=== PATIENT | female | born 1970 ===

== ENCOUNTER 2019-05-13 04:56 | Emergency (ER) | payer MEDICAID ==
[2019-05-13 05:40] LABS: Basophils % (Auto) 0.7 % (0.0-1.8); Eosinophils # (Auto) 0.1 K/mm3 (0.0-0.4); Eosinophils % (Auto) 1.2 % (0.0-4.3); Hematocrit 42.9 % (30.3-42.9); Hemoglobin 13.8 gm/dl (10.1-14.3); Lymphocytes # (Auto) 1.8 K/mm3 (1.2-5.4); Lymphocytes % (Auto) 30.2 % (13.4-35.0); Mean Corpuscular HGB Conc 32 % (30-34); Mean Corpuscular Volume 79 fl (79-97); Monocytes # (Auto) 0.4 K/mm3 (0.0-0.8); Monocytes % (Auto) 6.9 % (0.0-7.3); Platelet Count 269 K/mm3 (140-440); Red Blood Count 5.46 M/mm3 (3.65-5.03); Red Cell Distribution Width 13.7 % (13.2-15.2)
--- NOTE | 2019-05-13 05:45 | XRay Report ---
CHEST 2 VIEWS INDICATION / CLINICAL INFORMATION: BRIANNA. Headache. Ear ache. COMPARISON: None available. FINDINGS: SUPPORT DEVICES: None. HEART / MEDIASTINUM: No significant abnormality. LUNGS / PLEURA: No significant pulmonary or pleural abnormality. No pneumothorax. ADDITIONAL FINDINGS: No significant additional findings. IMPRESSION: 1. No acute findings. Signer Name: Lavell Larkin MD Signed: 05/13/2019 5:40 AM Workstation Name: [id number]
[2019-05-13 05:58] LABS: Alanine Aminotransferase 28 units/L (7-56); Albumin 3.9 g/dL (3.9-5); BUN/Creatinine Ratio 20; Blood Urea Nitrogen 14 mg/dL (7-17); Calcium 9.4 mg/dL (8.4-10.2); Hemolysis Index 15
[2019-05-13 06:10] LABS: Bacteria,Urine 1+ /HPF (Negative); Bilirubin,Urine NEG (Negative); Blood,Urine NEG (Negative); Color,Urine Straw (Yellow); Protein,Urine <15 mg/dL mg/dL (Negative); Urobilinogen,Urine < 2.0 mg/dL (<2.0)
[2019-05-13] MEDS ORDERED: SODIUM CHLORIDE 0.9% 1000 ML 1,000 ML IV ONE (06:18)
[2019-05-13] MEDS ORDERED: INSULIN REGULAR, HUMAN 100 UNITS/1 ML IV ONE (06:18)
[2019-05-13] MEDS ORDERED: ONDANSETRON 4 MG/2 ML INJ IV ONE (06:18)
--- NOTE | 2019-05-13 06:40 | Emergency Department Report ---
- General Chief Complaint: Dyspnea/Respdistress Stated Complaint: EARACHE, HEADACHE Time Seen by Provider: 05/13/19 06:11 Source: patient Mode of arrival: Ambulatory Limitations: No Limitations - History of Present Illness Initial Comments: 49-year-old female with history of hypertension and diabetes presents to ED with complaint of URI symptoms. The patient reports cough, nasal congestion, bilateral earaches, and headache 3 days. Patient also reports associated nausea and vomiting. Denies any sick contacts. Denies fever. MD Complaint: cough, nasal congestion -: days(s) (3) Severity: moderate Consistency: constant Improves With: nothing Worsens With: nothing Associated Symptoms: headache, nasal congestion, cough, shortness of breath, nausea, vomiting. denies: fever, chills, chest pain - Related Data Previous Rx's Medication Instructions Recorded Last Taken Type Benzonatate [Tessalon Perles] 100 mg PO Q8HR PRN #20 capsule 05/13/19 Unknown Rx Fluticasone [Flonase] 1 spray NS QDAY #1 bottle 05/13/19 Unknown Rx Loratadine [Claritin] 10 mg PO DAILY #20 tablet 05/13/19 Unknown Rx Naproxen [Naprosyn] 500 mg PO BID #20 tablet 05/13/19 Unknown Rx Ondansetron [Zofran Odt] 4 mg PO Q8HR PRN #20 tab.rapdis 05/13/19 Unknown Rx Allergies Allergy/AdvReac Type Severity Reaction Status Date / Time Penicillins Allergy Swelling Verified 05/13/19 05:03 ED Review of Systems ROS: Stated complaint: EARACHE, HEADACHE Other details as noted in HPI Comment: All other systems reviewed and negative Constitutional: denies: chills, fever Respiratory: cough, shortness of breath Cardiovascular: denies: chest pain Gastrointestinal: abdominal pain, nausea, vomiting ED Past Medical Hx - Past Medical History Previous Medical History?: Yes Hx Hypertension: Yes Hx Diabetes: Yes - Surgical History Past Surgical History?: No - Social History Smoking Status: Former Smoker Substance Use Type: None - Medications Home Medications: Home Medications Medication Instructions Recorded Confirmed Last Taken Type Benzonatate [Tessalon Perles] 100 mg PO Q8HR PRN #20 capsule 05/13/19 Unknown Rx Fluticasone [Flonase] 1 spray NS QDAY #1 bottle 05/13/19 Unknown Rx Loratadine [Claritin] 10 mg PO DAILY #20 tablet 05/13/19 Unknown Rx Naproxen [Naprosyn] 500 mg PO BID #20 tablet 05/13/19 Unknown Rx Ondansetron [Zofran Odt] 4 mg PO Q8HR PRN #20 tab.rapdis 05/13/19 Unknown Rx ED Physical Exam - General Limitations: No Limitations General appearance: alert, in no apparent distress - Head Head exam: Present: atraumatic, normocephalic - Eye Eye exam: Present: normal appearance, PERRL, EOMI - ENT ENT exam: Present: mucous membranes moist - Neck Neck exam: Present: normal inspection - Respiratory Respiratory exam: Present: normal lung sounds bilaterally. Absent: respiratory distress, wheezes, rales, rhonchi - Cardiovascular Cardiovascular Exam: Present: regular rate, normal rhythm - GI/Abdominal GI/Abdominal exam: Present: soft. Absent: distended, tenderness - Extremities Exam Extremities exam: Present: normal inspection - Neurological Exam Neurological exam: Present: alert, oriented X3 - Psychiatric Psychiatric exam: Present: normal affect, normal mood - Skin Skin exam: Present: warm, dry, intact, normal color ED Course Vital Signs 05/13/19 05/13/19 05/13/19 05:08 06:16 06:30 Temperature 98.4 F Pulse Rate 83 76 72 Respiratory 18 11 L 10 L Rate Blood Pressure 154/86 153/77 O2 Sat by Pulse 95 96 96 Oximetry 05/13/19 05/13/19 05/13/19 06:48 07:01 07:30 Temperature Pulse Rate 72 Respiratory 18 19 7 L Rate Blood Pressure 158/68 167/84 O2 Sat by Pulse 98 98 Oximetry ED Medical Decision Making - Lab Data Result diagrams: 05/13/19 05:25 05/13/19 05:25 - Radiology Data Radiology results: report reviewed, image reviewed - Medical Decision Making 49-year-old female with URI symptoms 3 days. Patient is afebrile, WBCs normal. Chest x-ray normal, no evidence of pneumonia or any other abnormalities. Likely viral illness. Blood glucose elevated to 600, however no evidence of DKA. Patient given IV fluid bolus and 10 units of insulin, glucose improved to the 300s. Patient feeling much better, prescriptions given. Outpatient follow- up advised. Return precautions given. - Differential Diagnosis URI, pneumonia, flu, DKA Critical care attestation.: If time is entered above; I have spent that time in minutes in the direct care of this critically ill patient, excluding procedure time. ED Disposition Clinical Impression: Hyperglycemia, Viral illness, Upper respiratory infection Disposition: TO HOME OR SELFCARE Is pt being admited?: No Condition: Stable Instructions: Upper Respiratory Infection (ED), Viral Syndrome (ED), Diabetic Hyperglycemia (ED) Prescriptions: Loratadine [Claritin] 10 mg PO DAILY #20 tablet Fluticasone [Flonase] 1 spray NS QDAY #1 bottle Naproxen [Naprosyn] 500 mg PO BID #20 tablet Benzonatate [Tessalon Perles] 100 mg PO Q8HR PRN #20 capsule PRN Reason: Cough Ondansetron [Zofran Odt] 4 mg PO Q8HR PRN #20 tab.rapdis PRN Reason: Vomiting Referrals: PRIMARY CARE, [Referring] - 3-5 Days [facility] [Provider Group] - 3-5 Days Time of Disposition: 08:06
[2019-05-13 08:26] VITALS: BP 159/81
== END 2019-05-13 08:15 | disposition home or self-care (01) ==
LOC: ED 04:56
DX: B34.9 Viral infection, unspecified (principal); J06.9 Acute upper respiratory infection, unspecified; I10 Essential (primary) hypertension; E11.9 Type 2 diabetes mellitus without complications; Z87.891 Personal history of nicotine dependence; Z88.0 Allergy status to penicillin
CPT/HCPCS: 36415; 71046; 80053; 81001; 82962; 83690; 84703; 85025; 87086; 96361; 96374; 96375; 99284; J2405; J7030; J1815

== ENCOUNTER 2019-09-01 21:07 | Emergency (ER) | payer MEDICAID ==
[2019-09-01 21:24] VITALS: BP 164/80
--- NOTE | 2019-09-01 21:26 | Emergency Department Report ---
Stated Complaint: BUMP ON SIDE/PAIN Time Seen by Provider: 09/01/19 21:20 - HPI History of Present Illness: This is a 49 y.o. F. that presents to the ER with painful rash to right hip. Patient states she was diagnosed with shingles at [facility] 08/30/18. She was prescribed antivirals and narcotics and states pain continues. She denies redness, swelling, numbness or tingling, or recent injury. - ROS Review of Systems: Skin: painful rash to right hip - Exam Physical Exam: Skin: erythematous vesicular rash to right hip, from, ttp, no swelling MSE screening note: Focused history and physical exam performed. Due to findings the following was ordered: ED Medical Decision Making - Medical Decision Making This is a 49 y.o. F. that presents to the ER with painful rash to right hip. VSS. Patient in no acute distress. Patient recently diagnosed with shingles. Taking antivirals and tylenol #3. There is a erythematous vesicular rash to right hip that appear to be herpes zoster. Patient instructed to continue current treatment. Instructed to wash hands frequently, avoid old and young people because she is contagious. Follow up with PCP. Return to work in 3 days. ED Disposition for MSE Disposition: [id number]/[id number] HOME UNDER HOME HLTH Is pt being admited?: No Condition: Stable Instructions: Herpes Zoster (ED) Additional Instructions: Continue current medication prescribed by [facility]. Follow up with primary care doctor in 2-3 days. Referrals: MANJULA MONAHAN MD [Staff Physician] - 3-5 Days MIMI KAUFMAN MD [Staff Physician] - 3-5 Days [facility] [Outside] - 3-5 Days Forms: Work/School Release Form(ED) Time of Disposition: 21:28
== END 2019-09-01 21:41 | disposition home health service (06) ==
LOC: ED 21:07
DX: R21 Rash and other nonspecific skin eruption (principal)
CPT/HCPCS: 99282

== ENCOUNTER 2019-09-15 18:42 | Emergency (ER) | payer MEDICAID ==
--- NOTE | 2019-09-15 19:42 | Event Note ---
ED Screening Note Date of service: 09/15/19 Time: 19:42 ED Screening Note: 49 yo F w/ hx diabetes, HTN presents to ED s/p drainage of abscess on right flank 3 days ago on 09/12/19. Patient states area started out as shingles, but then became infected. Reports worsening pain to the area, vomiting, chills, foul smell and bloody drainage. States she is currently on antibiotics, but cannot remeber the name. Pt reports procedure was performed by Dr Anthony Mcnair. Contacted PCP today and was told to come to ED to be evaluated. This initial assessment/diagnostic orders/clinical plan/treatment(s) is/are subject to change based on patients health status, clinical progression and re-assessment by fellow clinical providers in the ED. Further treatment and workup at subsequent clinical providers discretion. Patient/guardian urged not to elope from the ED as their condition may be serious if not clinically assessed and managed. Initial orders include: CBC, BMP
[2019-09-15 19:59] LABS: Basophils % (Auto) 0.4 % (0.0-1.8); Eosinophils # (Auto) 0.1 K/mm3 (0.0-0.4); Eosinophils % (Auto) 1.1 % (0.0-4.3); Hematocrit 41.4 % (30.3-42.9); Lymphocytes # (Auto) 1.9 K/mm3 (1.2-5.4); Lymphocytes % (Auto) 30.1 % (13.4-35.0); Mean Corpuscular HGB Conc 34 % (30-34); Mean Corpuscular Volume 77 fl (79-97); Monocytes # (Auto) 0.4 K/mm3 (0.0-0.8); Monocytes % (Auto) 5.7 % (0.0-7.3); Platelet Count 385 K/mm3 (140-440); Red Blood Count 5.36 M/mm3 (3.65-5.03); Red Cell Distribution Width 13.6 % (13.2-15.2)
[2019-09-15 20:17] LABS: BUN/Creatinine Ratio 14; Blood Urea Nitrogen 11 mg/dL (7-17); Calcium 10.5 mg/dL (8.4-10.2); Hemolysis Index 2
[2019-09-15] MEDS ORDERED: SODIUM CHLORIDE 0.9% 1000 ML 1,000 ML IV ONE ×2 (21:16→21:22)
--- NOTE | 2019-09-15 21:17 | Emergency Department Report ---
ED General Adult HPI - General Chief complaint: Wound/Laceration Stated complaint: POST OP WOUND Time Seen by Provider: 09/15/19 21:15 Source: patient Mode of arrival: Ambulatory Limitations: Language Barrier - History of Present Illness Initial comments: 49 yo F w/ hx diabetes, HTN presents to ED s/p drainage of abscess on right flank 3 days ago on 09/12/19. Patient states area started out as shingles, but then became infected. Reports worsening pain to the area, vomiting, chills, foul smell and bloody drainage. States she is currently on antibiotics that was prescribed to her after the incision and drainage. Patient states she is taking Bactrim twice a day. Patient states she was also prescribed valcyclovir for the shingles rash. Patient states that she has changed the dressing as instructed. - Related Data Previous Rx's Medication Instructions Recorded Last Taken Type Benzonatate [Tessalon Perles] 100 mg PO Q8HR PRN #20 capsule 05/13/19 Unknown Rx Fluticasone [Flonase] 1 spray NS QDAY #1 bottle 05/13/19 Unknown Rx Loratadine (Nf) [Claritin] 10 mg PO DAILY #20 tablet 05/13/19 Unknown Rx Naproxen [Naprosyn] 500 mg PO BID #20 tablet 05/13/19 Unknown Rx Ondansetron [Zofran Odt] 4 mg PO Q8HR PRN #20 tab.rapdis 05/13/19 Unknown Rx Allergies Allergy/AdvReac Type Severity Reaction Status Date / Time Penicillins Allergy Swelling Verified 05/13/19 05:03 ED Review of Systems ROS: Stated complaint: POST OP WOUND Other details as noted in HPI Comment: All other systems reviewed and negative ED Past Medical Hx - Past Medical History Hx Hypertension: Yes Hx Diabetes: Yes - Social History Smoking Status: Never Smoker - Medications Home Medications: Home Medications Medication Instructions Recorded Confirmed Last Taken Type Benzonatate [Tessalon Perles] 100 mg PO Q8HR PRN #20 capsule 05/13/19 Unknown Rx Fluticasone [Flonase] 1 spray NS QDAY #1 bottle 05/13/19 Unknown Rx Loratadine (Nf) [Claritin] 10 mg PO DAILY #20 tablet 05/13/19 Unknown Rx Naproxen [Naprosyn] 500 mg PO BID #20 tablet 05/13/19 Unknown Rx Ondansetron [Zofran Odt] 4 mg PO Q8HR PRN #20 tab.rapdis 05/13/19 Unknown Rx ED Physical Exam - General Limitations: Language Barrier General appearance: alert, in no apparent distress - Head Head exam: Present: atraumatic, normocephalic - Eye Eye exam: Present: normal appearance - ENT ENT exam: Present: mucous membranes moist - Neck Neck exam: Present: normal inspection - Respiratory Respiratory exam: Present: normal lung sounds bilaterally. Absent: respiratory distress - Cardiovascular Cardiovascular Exam: Present: regular rate, normal rhythm. Absent: systolic murmur, diastolic murmur, rubs, gallop - GI/Abdominal GI/Abdominal exam: Present: soft, normal bowel sounds - Extremities Exam Extremities exam: Present: normal inspection - Back Exam Back exam: Present: normal inspection, full ROM, tenderness (and erythema to the right lower back. Wound was visualized, mild cellulitis around it. Wound is healing appropriately. No pus) - Neurological Exam Neurological exam: Present: alert, oriented X3 - Psychiatric Psychiatric exam: Present: normal affect, normal mood - Skin Skin exam: Present: warm, dry, intact, normal color. Absent: rash ED Course Vital Signs 09/15/19 09/15/19 19:21 23:35 Temperature 98.2 F Pulse Rate 85 71 Respiratory 16 16 Rate Blood Pressure 148/83 Blood Pressure 113/61 [Left] O2 Sat by Pulse 99 97 Oximetry ED Medical Decision Making - Lab Data Result diagrams: 09/15/19 19:46 09/15/19 19:46 Laboratory Last Values WBC 6.4 K/mm3 (4.5-11.0) 09/15/19 19:46 RBC 5.36 M/mm3 (3.65-5.03) H 09/15/19 19:46 Hgb 14.0 gm/dl (10.1-14.3) 09/15/19 19:46 Hct 41.4 % (30.3-42.9) 09/15/19 19:46 MCV 77 fl (79-97) L 09/15/19 19:46 MCH 26 pg (28-32) L 09/15/19 19:46 MCHC 34 % (30-34) 09/15/19 19:46 RDW 13.6 % (13.2-15.2) 09/15/19 19:46 Plt Count 385 K/mm3 (140-440) 09/15/19 19:46 Lymph % (Auto) 30.1 % (13.4-35.0) 09/15/19 19:46 [place] % (Auto) 5.7 % (0.0-7.3) 09/15/19 19:46 Eos % (Auto) 1.1 % (0.0-4.3) 09/15/19 19:46 Baso % (Auto) 0.4 % (0.0-1.8) 09/15/19 19:46 Lymph # 1.9 K/mm3 (1.2-5.4) 09/15/19 19:46 [place] # 0.4 K/mm3 (0.0-0.8) 09/15/19 19:46 Eos # 0.1 K/mm3 (0.0-0.4) 09/15/19 19:46 Baso # 0.0 K/mm3 (0.0-0.1) 09/15/19 19:46 Seg Neutrophils % 62.7 % (40.0-70.0) 09/15/19 19:46 Seg Neutrophils # 4.0 K/mm3 (1.8-7.7) 09/15/19 19:46 Sodium 139 mmol/L (137-145) 09/15/19 19:46 Potassium 4.0 mmol/L (3.6-5.0) 09/15/19 19:46 Chloride 94.6 mmol/L (98-107) L 09/15/19 19:46 Carbon Dioxide 26 mmol/L (22-30) 09/15/19 19:46 Anion Gap 22 mmol/L 09/15/19 19:46 BUN 11 mg/dL (7-17) 09/15/19 19:46 Creatinine 0.8 mg/dL (0.7-1.2) 09/15/19 19:46 Estimated GFR > 60 ml/min 09/15/19 19:46 BUN/Creatinine Ratio 14 % 09/15/19 19:46 Glucose 551 mg/dL (65-100) H* 09/15/19 19:46 POC Glucose 244 (70-105) H 09/15/19 23:17 Calcium 10.5 mg/dL (8.4-10.2) H 09/15/19 19:46 - Medical Decision Making This 49-year-old diabetic female who presented for postop wound check status post incision and drainage 4 days ago presents with hyperglycemia. Patient states that she takes NovoLog for diabetes. Wound was evaluated, does not look infected. Mild cellulitis around the wound. No swelling, wound looks well-healing Packing was removed and wound was repacked with iodoform gauze. Patient received 2 L of fluid, 10 units of insulin, pain medication in the ED. blood sugar reduced at 244 prior to discharge. Patient reports to feeling much better prior to discharge. Discussed the patient to continue taking her medication as prescribed by her doctors. Discussed the patient to follow-up with her primary care physician for wound check in 2-3 days Critical Care Time: Yes Critical care time in (mins) excluding proc time.: 33 Critical care attestation.: If time is entered above; I have spent that time in minutes in the direct care of this critically ill patient, excluding procedure time. Critical Care Time: 33 minutes ED Disposition Clinical Impression: Postoperative wound cellulitis, Hyperglycemia due to type 2 diabetes mellitus, Acute hyperglycemia Disposition: - TO HOME OR SELFCARE Is pt being admited?: No Does the pt Need Aspirin: No Condition: Stable Instructions: Diabetes Mellitus Type 2 in Adults (ED), Acute Wound Care (ED) Additional Instructions: Make sure to follow up with the primary care physician as discussed. Continue to Take all your medications as you've been prescribed by your primary care physician Follow-up for wound check a 2-3 days If you have any worsening symptoms or develop new symptoms please return to ED immediately. Referrals: ELTON ELLIOTT MD [Staff Physician] - 3-5 Days [facility] [Provider Group] - 3-5 Days [facility] [Outside] - 3-5 Days [facility] [Outside] - 3-5 Days Forms: Accompanied Note, Work/School Release Form(ED) Time of Disposition: 23:21
[2019-09-15] MEDS ORDERED: MORPHINE 2 MG/1 ML INJ IV ONE (21:22)
[2019-09-15] MEDS ORDERED: INSULIN REGULAR, HUMAN 100 UNITS/1 ML IV ONE (21:22)
[2019-09-15] MEDS ORDERED: KETOROLAC 30 MG/1 ML INJ IV ONE (21:22)
[2019-09-15] MEDS ORDERED: NEOMY 3.5 MG/BACIT 400 UNITS/POLY B 5000 UNITS/GM OINT PACKET TP ONE (22:33)
[2019-09-15 23:36] VITALS: BP 113/61
== END 2019-09-15 23:40 | disposition home or self-care (01) ==
LOC: ED 18:42
DX: E11.65 Type 2 diabetes mellitus with hyperglycemia (principal); L03.90 Cellulitis, unspecified; I10 Essential (primary) hypertension; Z79.899 Other long term (current) drug therapy; Z88.0 Allergy status to penicillin
CPT/HCPCS: 36415; 80048; 82962; 85025; 96361; 96374; 96375; 99283; J1885; J2270; J7030; A6250; J1815

== ENCOUNTER 2019-10-28 23:11 | Emergency (ER) | payer MEDICAID ==
[2019-10-29 00:38] LABS: Bacteria,Urine 2+ /HPF (Negative); Bilirubin,Urine NEG (Negative); Blood,Urine NEG (Negative); Color,Urine Yellow (Yellow); Mucus,Urine FEW /HPF; Urobilinogen,Urine < 2.0 mg/dL (<2.0)
[2019-10-29] MEDS ORDERED: fentaNYL 100 MCG/2 ML INJ IV ONE (02:16)
[2019-10-29] MEDS ORDERED: ONDANSETRON 4 MG/2 ML INJ IV ONE (02:16)
--- NOTE | 2019-10-29 02:24 | Emergency Department Report ---
HPI - General Chief Complaint: Abdominal Pain Time Seen by Provider: 10/29/19 02:08 - [facility] HPI: Room 3 The patient is a 49-year-old female present with a chief complaint of left flank and left facial pain. The patient states 1 week ago she developed pain in her left flank and left face. Patient states she went to the emergency department and was diagnosed with sinusitis and kidney infection. Patient states she was started on ciprofloxacin and a cough medication. The patient states she is completed her course of ciprofloxacin but her pain in her left flank and face has not improved. Patient admits to subjective fever and nausea without vomiti ng. Patient denies dysuria or hematuria. Patient gives her flank pain a score of 8/10 ED Past Medical Hx - Past Medical History Previous Medical History?: Yes Hx Hypertension: Yes Hx Diabetes: Yes - Surgical History Past Surgical History?: No - Family History Family history: no significant - Social History Smoking Status: Former Smoker (None x1 year) Substance Use Type: None (Denies illicit drug use) - Medications Home Medications: Home Medications Medication Instructions Recorded Confirmed Last Taken Type Benzonatate [Tessalon Perles] 100 mg PO Q8HR PRN #20 capsule 05/13/19 Unknown Rx Fluticasone [Flonase] 1 spray NS QDAY #1 bottle 05/13/19 Unknown Rx Loratadine (Nf) [Claritin] 10 mg PO DAILY #20 tablet 05/13/19 Unknown Rx Naproxen [Naprosyn] 500 mg PO BID #20 tablet 05/13/19 Unknown Rx Ondansetron [Zofran Odt] 4 mg PO Q8HR PRN #20 tab.rapdis 05/13/19 Unknown Rx DOXYCYCLINE Hyclate [Vibramycin 100 mg PO Q12HR #20 capsule 10/29/19 Unknown Rx CAP] HYDROcodone/APAP 5-325 [[place] 1 - 2 each PO Q6HR PRN #14 tablet 10/29/19 Unknown Rx 5/325] Ibuprofen [Motrin 800 MG tab] 800 mg PO Q8HR PRN #20 tablet 10/29/19 Unknown Rx ED Review of Systems ROS: Stated complaint: KIDNEY PAIN, HEADACHE AND NAUSEA Other details as noted in HPI Constitutional: fever (Subjective) Eyes: denies: eye pain ENT: denies: throat pain Respiratory: no symptoms reported Gastrointestinal: nausea. denies: vomiting Genitourinary: denies: dysuria Musculoskeletal: back pain Neurological: headache Physical Exam - Physical Exam Vital Signs: Vital Signs 10/28/19 10/28/19 23:14 23:18 Temperature 98.1 F 98.1 F Pulse Rate 77 77 Respiratory 18 20 Rate Blood Pressure 187/97 187/97 O2 Sat by Pulse 98 98 Oximetry Physical Exam: GENERAL: The patient is well-developed well-nourished female lying on stretcher not appearing to be in acute distress. [] HEENT: Normocephalic. Atraumatic. Extraocular motions are intact. Patient has moist mucous membranes. NECK: Supple. Trachea midline CHEST/LUNGS: Clear to auscultation. There is no respiratory distress noted. HEART/CARDIOVASCULAR: Regular. There is no tachycardia. There is no gallop rub or murmur. ABDOMEN: Abdomen is soft, nontender. Patient has normal bowel sounds. There is no abdominal distention. SKIN: There is no rash. There is no edema. There is no diaphoresis. NEURO: The patient is awake, alert, and oriented. The patient is cooperative. The patient has normal speech MUSCULOSKELETAL: There is no evidence of acute injury. ED Course Vital Signs 10/28/19 10/28/19 23:14 23:18 Temperature 98.1 F 98.1 F Pulse Rate 77 77 Respiratory 18 20 Rate Blood Pressure 187/97 187/97 O2 Sat by Pulse 98 98 Oximetry ED Medical Decision Making - Lab Data Result diagrams: 10/29/19 02:30 10/29/19 02:30 - Radiology Data Radiology results: report reviewed (CT head, CT abdomen pelvis), image reviewed (CT head, CT abdomen pelvis) Findings [facility] [address] [place] [address] Cat Scan Report Signed Patient: KEITH HICKS MR#: [id number] 522 : 1970 Acct:[id number] Age/Sex: 49 / F ADM Date: 10/28/19 Loc: ED Attending Dr: Ordering Physician: IRAM PIZARRO MD Date of Service: 10/29/19 Procedure(s): CT head/brain wo con Accession Number(s): [id number] cc: IRAM PIZARRO MD CT HEAD WITHOUT CONTRAST HISTORY: MAIN: Left sinus pressure, HEADACHE, COMPARISON: None TECHNIQUE: CT imaging of the head was performed in the axial, sagittal, and coronal projections and bone algorithm in axial projection in the soft tissue algorithm. All CT scans at this location are performed using CT dose reduction for ALARA by means of automated exposure control. CONTRAST: None. FINDINGS: Cerebral and Cerebellar Hemispheres: No evidence of mass or mass effect. No midline shift. No acute hemorrhage. No acute cortical infarction. No extra-axial fluid collection. Ventricles: Normal in size and configuration for age. Osseous Structures: No significant abnormality. Visualized Paranasal Sinuses: No significant abnormality. Additional Findings: None IMPRESSION: 1. No acute intracranial abnormality. NOTE: Acute infarct may not be visible by noncontrast CT. Signer Name: Tonny Bianchi MD Signed: 10/29/2019 4:27 AM Workstation Name: [id number] Transcribed By: WG Dictated By: Tonny Bianchi MD Elec tronically Authenticated By: Tonny Bianchi MD Signed Date/Time: 10/29/19426 DD/ 1 TD/TT: [place] [address] Cat Scan Report Signed Patient: KEITH HICKS MR#: [id number] 522 : 1970 Acct:[id number] Age/Sex: 49 / F ADM Date: 10/28/19 Loc: ED Attending Dr: Ordering Physician: IRAM PIZARRO MD Date of Service: 10/29/19 Procedure(s): CT abdomen pelvis w con Accession Number(s): [id number] cc: IRAM PIZARRO MD CT ABDOMEN AND PELVIS WITH CONTRAST INDICATION / CLINICAL INFORMATION: MAIN: Left flank pain. 100 ML OMNIPAQUE 300. TECHNIQUE: Axial CT images were obtained through the abdomen and pelvis after 100 ML OMNIPAQUE [address] scans at this location are performed using CT dose reduction for ALARA by means of automated exposure control. COMPARISON: None available. FINDINGS: LOWER CHEST: No significant abnormality. Small hiatal hernia LIVER: No significant abnormality. GALLBLADDER: Previous cholecystectomy BILE DUCTS: No significant abnormality. PANCREAS: No significant abnormality. SPLEEN: No significant abnormality. ADRENALS: No significant abnormality. RIGHT KIDNEY and URETER: No significant abnormality. LEFT KIDNEY and URETER: No significant abnormality. STOMACH and SMALL BOWEL: No significant abnormality. COLON: No significant abnormality. APPENDIX: No significant abnormality. PERITONEUM: No free fluid. No free air. No fluid collection. LYMPH NODES: No significant adenopathy. AORTA and ARTERIES: No significant abnormality. IVC and VEINS: No significant abnormality. URINARY BLADDER: No significant abnormality. REPRODUCTIVE ORGANS: No significant abnormality. Previous hysterectomy ADDITIONAL FINDINGS: None. SKELETAL SYSTEM: No significant abnormality. IMPRESSION: 1. No significant abnormality. Signer Name: Tonny Bianchi MD Signed: 10/29/2019 4:34 AM Workstation Name: [id number] Transcribed By: WG Dictated By: Tonny Bianchi MD Electronically Authenticated By: Tonny Bianchi MD Signed Date/Time: 10/29/19433 DD/ 8 TD/TT: - Differential Diagnosis Pyelonephritis, sinusitis, renal abscess Critical care attestation.: If time is entered above; I have spent that time in minutes in the direct care of this critically ill patient, excluding procedure time. ED Disposition Clinical Impression: Pyelonephritis, Facial pain Disposition: - TO HOME OR SELFCARE Is pt being admited?: No Does the pt Need Aspirin: No Condition: Stable Instructions: Abdominal Pain (ED) Additional Instructions: Return to the emergency department should you develop worsening symptoms, inability to tolerate food or liquids, high fever or any other concerns Prescriptions: Ibuprofen [Motrin 800 MG tab] 800 mg PO Q8HR PRN #20 tablet PRN Reason: Pain, Moderate (4-6) HYDROcodone/APAP 5-325 [[place] 5/325] 1 - 2 each PO Q6HR PRN #14 tablet PRN Reason: Pain DOXYCYCLINE Hyclate [Vibramycin CAP] 100 mg PO Q12HR #20 capsule Referrals: EDUIN NELSON MD [Staff Physician] - 3-5 Days (Dr. Nelson is an ear nose and throat doctor (high lighter). Please follow-up with her for further evaluation of your sinus pain) LILO JIMÉNEZ MD [Staff Physician] - 3-5 Days (Dr. Jiménez is a urologist. Please follow-up with him for further evaluation if your flank pain persists) Time of Disposition: 05:03
[2019-10-29 03:10] LABS: Basophils # (Auto) 0.1 K/mm3 (0.0-0.1); Eosinophils # (Auto) 0.1 K/mm3 (0.0-0.4); Eosinophils % (Auto) 2.3 % (0.0-4.3); Hematocrit 41.1 % (30.3-42.9); Hemoglobin 13.5 gm/dl (10.1-14.3); Lymphocytes % (Auto) 37.2 % (13.4-35.0); Mean Corpuscular HGB Conc 33 % (30-34); Mean Corpuscular Volume 78 fl (79-97); Monocytes # (Auto) 0.3 K/mm3 (0.0-0.8); Monocytes % (Auto) 5.7 % (0.0-7.3); Platelet Count 293 K/mm3 (140-440); Red Blood Count 5.29 M/mm3 (3.65-5.03); Red Cell Distribution Width 14.1 % (13.2-15.2)
[2019-10-29 04:05] LABS: Alanine Aminotransferase 31 units/L (7-56); Albumin 3.9 g/dL (3.9-5); BUN/Creatinine Ratio 18; Blood Urea Nitrogen 11 mg/dL (7-17); Calcium 9.4 mg/dL (8.4-10.2); Hemolysis Index 3
--- NOTE | 2019-10-29 04:31 | Cat Scan Report ---
CT HEAD WITHOUT CONTRAST HISTORY: MAIN: Left sinus pressure, HEADACHE, COMPARISON: None TECHNIQUE: CT imaging of the head was performed in the axial, sagittal, and coronal projections and bone algori thm in axial projection in the soft tissue algorithm. All CT scans at this location are performed using CT dose reduction for ALARA by means of automated e xposure control. CONTRAST: None. FINDINGS: Cerebral and Cerebellar Hemispheres: No evidence of mass or mass effect. No midline shift. No acute hemorrhage. No acute cortical infarction. No extra-axial fluid collection. Ventricles: Normal in size and configuration for age. Osseous Structures: No significant abnormality. Visualized Paranasal Sinuses: No significant abnormality. Additional Findings: None IMPRESSION: 1. No acute intracranial abnormality. NOTE: Acute infarct may not be visible by noncontrast CT. Signer Name: Tonny Bianchi MD Signed: 10/29/2019 4:27 AM Workstation Name: [id number]
--- NOTE | 2019-10-29 04:38 | Cat Scan Report ---
CT ABDOMEN AND PELVIS WITH CONTRAST INDICATION / CLINICAL INFORMATION: MAIN: Left flank pain. 100 ML OMNIPAQUE 300. TECHNIQUE: Axial CT images were obtained through the abdomen and pelvis after 100 ML OMNIPAQUE [address] scans at this location are performed using CT dose reduction for ALARA by means of automated exposure control. COMPARISON: None available. FINDINGS: LOWER CHEST: No significant abnormality. Small hiatal hernia LIVER: No significant abnormality. GALLBLADDER: Previous cholecystectomy BILE DUCTS: No significant abnormality. PANCREAS: No significant abnormality. SPLEEN: No significant abnormality. ADRENALS: No significant abnormality. RIGHT KIDNEY and URETER: No significant abnormality. LEFT KIDNEY and URETER: No significant abnormality. STOMACH and SMALL BOWEL: No significant abnormality. COLON: No significant abnormality. APPENDIX: No significant abnormality. PERITONEUM: No free fluid. No free air. No fluid collection. LYMPH NODES: No significant adenopathy. AORTA and ARTERIES: No significant abnormality. IVC and VEINS: No significant abnormality. URINARY BLADDER: No significant abnormality. REPRODUCTIVE ORGANS: No significant abnormality. Previous hysterectomy ADDITIONAL FINDINGS: None. SKELETAL SYSTEM: No significant abnormality. IMPRESSION: 1. No significant abnormality. Signer Name: Tonny Bianchi MD Signed: 10/29/2019 4:34 AM Workstation Name: [id number]
[2019-10-29] MEDS ORDERED: SODIUM CHLORIDE 0.9% 1000 ML 1,000 ML ONE (05:11)
[2019-10-29] MEDS ORDERED: SODIUM CHLORIDE 0.9% 1000 ML 1,000 ML IV ONE (05:20)
[2019-10-29] MEDS ORDERED: INSULIN REGULAR, HUMAN 100 UNITS/1 ML IV ONE ×2 (05:20→05:59)
[2019-10-29 07:15] VITALS: BP 142/80
== END 2019-10-29 07:16 | disposition home or self-care (01) ==
LOC: ED 23:11
DX: N12 Tubulo-interstitial nephritis, not specified as acute or chronic (principal); R51 Headache; R10.9 Unspecified abdominal pain; I10 Essential (primary) hypertension; E11.9 Type 2 diabetes mellitus without complications; Z88.0 Allergy status to penicillin; Z87.891 Personal history of nicotine dependence; Z79.899 Other long term (current) drug therapy
CPT/HCPCS: 36415; 70450; 74177; 80053; 81001; 82962; 85025; 87086; 96374; 96375; 96376; 99284; J2405; J3010; J7030; Q9967; J1815

== ENCOUNTER 2020-05-18 18:36 | Emergency (ER) | payer MEDICAID ==
[2020-05-18 19:14] LABS: Hematocrit 46.2 % (30.3-42.9); Hemoglobin 15.2 gm/dl (10.1-14.3); Mean Corpuscular HGB Conc 33 % (30-34); Mean Corpuscular Volume 78 fl (79-97); Platelet Count 235 K/mm3 (140-440); Red Cell Distribution Width 14.1 % (13.2-15.2)
[2020-05-18 19:35] LABS: Alanine Aminotransferase 34 units/L (7-56); Albumin 3.8 g/dL (3.9-5); Blood Urea Nitrogen 9 mg/dL (7-17); Calcium 10.4 mg/dL (8.4-10.2); Hemolysis Index 18
[2020-05-18 19:37] LABS: BUN/Creatinine Ratio 13
[2020-05-18] MEDS ORDERED: diphenhydrAMINE 50 MG/ML VIAL IV ONE (20:15)
[2020-05-18] MEDS ORDERED: INSULIN REGULAR, HUMAN 100 UNIT/ML 3ML VIAL IV ONE ×2 (20:15→22:06)
[2020-05-18] MEDS ORDERED: KETOROLAC 30 MG/1 ML INJ IV ONE (20:15)
[2020-05-18] MEDS ORDERED: METOCLOPRAMIDE 10 MG/2 ML INJ IV ONE (20:15)
[2020-05-18] MEDS ORDERED: SODIUM CHLORIDE 0.9% 1000 ML 1,000 ML IV ONE (20:15)
--- NOTE | 2020-05-18 20:16 | Emergency Department Report ---
ED General Adult HPI - General Chief complaint: Nausea/Vomiting/Diarrhea Stated complaint: PAIN PUI?: Yes Time Seen by Provider: 05/18/20 19:47 Source: patient, RN notes reviewed, old records reviewed Mode of arrival: Ambulatory Limitations: No Limitations - History of Present Illness Initial comments: The patient was evaluated in the emergency department for symptoms described in the history of present illness. He/she was evaluated in the context of the global COVID-19 pandemic, which necessitated consideration that the patient might be at risk for infection with the virus that causes COVID-19. Institutional protocols and algorithms that pertain to the evaluation of patients at risk for COVID-19 are in a state of rapid change based on information released by regulatory bodies including the CDC and federal and state organizations. These policies and algorithms were followed during the patient's care in the emergency department. Please note that these policies, procedures and recommendations changed on a rapid basis. This is a 50-year-old female, not known to myself previously, has a history of diabetes and hypertension, has prior visits to this hospital for hyperglycemia, and does not know what her hemoglobin A1c is. During the history and physical, I am garnisher and escorted by nurse Larisa Kim The patient presents to the ER with a complaint of nontraumatic headache, which is frontal and bitemporal, not sudden or thunderclap in nature, not maximal in intensity, not the worst headache of her life, abdominal cramping, body aches, and frequent episodes of diarrhea. The diarrhea is nonbloody and nonbilious. It was watery and green. The patient denies dysuria. The patient denies loss of vision, sore throat, Loss of taste and smell, no cough, no chest pain, no shortness of breath. Symptoms present for about the past 24 hours. They are intermittent, nonradiating, and do not really have exacerbating or relieving factors that she is aware of. She is not sure if she has been exposed to COVID. -: Gradual, days(s) (1) Location: head, back, left, right, upper extremity, lower extremity Quality: aching Consistency: other Improves with: other Worsens with: other - Related Data Previous Rx's Medication Instructions Recorded Last Taken Type Benzonatate [Tessalon Perles] 100 mg PO Q8HR PRN #20 capsule 05/13/19 Unknown Rx Fluticasone [Flonase] 1 spray NS QDAY #1 bottle 05/13/19 Unknown Rx Loratadine (Nf) [Claritin] 10 mg PO DAILY #20 tablet 05/13/19 Unknown Rx Naproxen [Naprosyn] 500 mg PO BID #20 tablet 05/13/19 Unknown Rx Ondansetron [Zofran Odt] 4 mg PO Q8HR PRN #20 tab.rapdis 05/13/19 Unknown Rx Acetaminophen [Non-Aspirin Extra 500 mg PO Q6HR PRN #30 tablet 05/18/20 Unknown Rx Strength] Nadine Root [Nadine] 250 mg PO QID PRN #30 capsule 05/18/20 Unknown Rx Ibuprofen [Motrin] 600 mg PO Q8H PRN #30 tablet 05/18/20 Unknown Rx Metoclopramide [Reglan] 10 mg PO QID PRN #30 tablet 05/18/20 Unknown Rx Nitrofurantoin [place]/M-Cryst 100 mg PO Q12HR #14 capsule 05/18/20 Unknown Rx [Macrobid CAP] Allergies Allergy/AdvReac Type Severity Reaction Status Date / Time Penicillins Allergy Swelling Verified 05/13/19 05:03 ED Review of Systems ROS: Stated complaint: PAIN Other details as noted in HPI Constitutional: malaise, weakness Eyes: denies: eye discharge ENT: congestion Respiratory: denies: wheezing Cardiovascular: denies: chest pain Gastrointestinal: diarrhea. denies: abdominal pain Genitourinary: denies: dysuria, frequency Musculoskeletal: arthralgia, myalgia Neurological: headache, weakness ED Past Medical Hx - Past Medical History Previous Medical History?: Yes Hx Hypertension: Yes Hx Diabetes: Yes - Social History Smoking Status: Former Smoker (None x1 year) Substance Use Type: None (Denies illicit drug use) - Medications Home Medications: Home Medications Medication Instructions Recorded Confirmed Last Taken Type Benzonatate [Tessalon Perles] 100 mg PO Q8HR PRN #20 capsule 05/13/19 Unknown Rx Fluticasone [Flonase] 1 spray NS QDAY #1 bottle 05/13/19 Unknown Rx Loratadine (Nf) [Claritin] 10 mg PO DAILY #20 tablet 05/13/19 Unknown Rx Naproxen [Naprosyn] 500 mg PO BID #20 tablet 05/13/19 Unknown Rx Ondansetron [Zofran Odt] 4 mg PO Q8HR PRN #20 tab.rapdis 05/13/19 Unknown Rx Acetaminophen [Non-Aspirin Extra 500 mg PO Q6HR PRN #30 tablet 05/18/20 Unknown Rx Strength] Nadine Root [Nadine] 250 mg PO QID PRN #30 capsule 05/18/20 Unknown Rx Ibuprofen [Motrin] 600 mg PO Q8H PRN #30 tablet 05/18/20 Unknown Rx Metoclopramide [Reglan] 10 mg PO QID PRN #30 tablet 05/18/20 Unknown Rx Nitrofurantoin [place]/M-Cryst 100 mg PO Q12HR #14 capsule 05/18/20 Unknown Rx [Macrobid CAP] ED Physical Exam - General Limitations: No Limitations General appearance: alert, anxious, obese - Head Head exam: Present: atraumatic, normocephalic - Eye Eye exam: Present: normal appearance, EOMI. Absent: nystagmus - ENT ENT exam: Present: normal exam, normal orophraynx, mucous membranes moist, normal external ear exam - Neck Neck exam: Present: normal inspection, full ROM. Absent: tenderness, meningismus - Respiratory Respiratory exam: Present: normal lung sounds bilaterally. Absent: respiratory distress, wheezes, rales, rhonchi, stridor, decreased breath sounds - Cardiovascular Cardiovascular Exam: Present: regular rate, normal rhythm, normal heart sounds. Absent: bradycardia, tachycardia, irregular rhythm, systolic murmur, diastolic murmur, rubs, gallop - GI/Abdominal GI/Abdominal exam: Present: soft. Absent: distended, tenderness, guarding, rebound, rigid, pulsatile mass - Extremities Exam Extremities exam: Present: normal inspection, full ROM, other (2+ pulses noted in the bilateral upper and lower extremities. There is no palpable cord. negative Homans sign. Muscular compartments are soft. The pelvis is stable.). Absent: pedal edema, calf tenderness - Back Exam Back exam: Present: normal inspection, full ROM. Absent: tenderness, CVA tenderness (R), CVA tenderness (L), paraspinal tenderness, vertebral tenderness - Neurological Exam Neurological exam: Present: alert, normal gait, other (No facial droop. Tongue midline. Extraocular movements intact bilaterally. Facial sensation intact to light touch in V1, V2, V3 distribution bilaterally. 5 and a 5 strength in 4 extremities. Sensation intact to light touch in 4 extremities.). Absent: motor sensory deficit - Psychiatric Psychiatric exam: Present: anxious - Skin Skin exam: Present: warm, dry, intact, normal color. Absent: rash ED Course Vital Signs 05/18/20 05/18/20 05/18/20 18:43 20:10 20:15 Temperature 98.4 F Pulse Rate 97 H 90 89 Respiratory 20 16 20 Rate Blood Pressure 163/104 183/100 Blood Pressure 195/104 [Left] O2 Sat by Pulse 97 98 97 Oximetry 05/18/20 05/18/20 05/18/20 20:55 20:56 21:15 Temperature Pulse Rate 91 H 85 Respiratory 18 18 Rate Blood Pressure 183/100 173/92 Blood Pressure [Left] O2 Sat by Pulse 98 97 Oximetry 05/18/20 05/18/20 05/18/20 21:26 21:30 21:45 Temperature Pulse Rate 83 83 Respiratory 18 19 19 Rate Blood Pressure 171/89 166/83 Blood Pressure [Left] O2 Sat by Pulse 96 95 Oximetry 05/18/20 05/18/20 05/18/20 22:04 22:15 22:30 Temperature Pulse Rate 74 78 79 Respiratory 14 14 17 Rate Blood Pressure 176/88 167/91 159/93 Blood Pressure [Left] O2 Sat by Pulse 97 98 98 Oximetry 05/18/20 05/18/20 05/18/20 22:45 23:00 23:15 Temperature Pulse Rate 83 76 84 Respiratory 18 15 17 Rate Blood Pressure 150/95 159/90 141/84 Blood Pressure [Left] O2 Sat by Pulse 97 97 97 Oximetry - Reevaluation(s) Reevaluation #1: 05/18/20 21:26 Differential diagnosis, including but not limited to: Migraine headache, tension headache, cluster headache, viral syndrome, pneumonia, urinary tract infection, COVID-19, hyperglycemia Assessment and plan: 50-year-old female with a number of nonspecific complaints. She is afebrile with reassuring vital signs, with the exception of chronically elevated blood pressure, with a GCS of 15. Abdomen soft and benign, without rebound, guarding or peritoneal signs. There are no meningeal signs. Patient placed on isolation as she presented to the COVID-19 pandemic. Patient educated that she may have an atypical presentation of COVID. Laboratory studies do not demonstrate emergent need for hospitalization, she is chronically hyperglycemic without anion gap acidosis. We will treat her symptoms, give insulin, obtain urinalysis, chest x-ray to my interpretation appears to show no acute findings. Reevaluation #2: 05/18/20 23:39 Repeat Accu-Chek 194. Patient endorses improvement in her symptoms. Vital signs have remained stable. Protecting her airway, does not appear to be in any acute distress, suitable for discharge with outpatient follow-up. ED Medical Decision Making - Lab Data Result diagrams: 05/18/20 19:04 05/18/20 19:04 Vital Signs 05/18/20 05/18/20 18:43 20:56 Temperature 98.4 F Pulse Rate 97 H Respiratory 20 18 Rate Blood Pressure 163/104 O2 Sat by Pulse 97 Oximetry Lab Results 05/18/20 05/18/20 05/18/20 Range/Units 19:01 19:04 19:04 WBC 4.5 (4.5-11.0) K/mm3 RBC 5.90 H (3.65-5.03) M/mm3 Hgb 15.2 H (10.1-14.3) gm/dl Hct 46.2 H (30.3-42.9) % MCV 78 L (79-97) fl MCH 26 L (28-32) pg MCHC 33 (30-34) % RDW 14.1 (13.2-15.2) % Plt Count 235 (140-440) K/mm3 Sodium 134 L (137-145) mmol/L Potassium 4.0 (3.6-5.0) mmol/L Chloride 94.6 L (98-107) mmol/L Carbon Dioxide 25 (22-30) mmol/L Anion Gap 18 mmol/L BUN 9 (7-17) mg/dL Creatinine 0.7 (0.6-1.2) mg/dL Estimated GFR > 60 ml/min BUN/Creatinine Ratio 13 % Glucose 535 H* (65-100) mg/dL POC Glucose 454 H (70-105) Calcium 10.4 H (8.4-10.2) mg/dL Magnesium (1.7-2.3) mg/dL Total Bilirubin 0.20 (0.1-1.2) mg/dL AST 24 (5-40) units/L ALT 34 (7-56) units/L Alkaline Phosphatase 143 H (35-129) units/L Total Creatine Kinase (30-135) units/L Total Protein 7.2 (6.3-8.2) g/dL Albumin 3.8 L (3.9-5) g/dL Albumin/Globulin Ratio 1.1 % 05/18/20 Range/Units 20:19 WBC (4.5-11.0) K/mm3 RBC (3.65-5.03) M/mm3 Hgb (10.1-14.3) gm/dl Hct (30.3-42.9) % MCV (79-97) fl MCH (28-32) pg MCHC (30-34) % RDW (13.2-15.2) % Plt Count (140-440) K/mm3 Sodium (137-145) mmol/L Potassium (3.6-5.0) mmol/L Chloride (98-107) mmol/L Carbon Dioxide (22-30) mmol/L Anion Gap mmol/L BUN (7-17) mg/dL Creatinine (0.6-1.2) mg/dL Estimated GFR ml/min BUN/Creatinine Ratio % Glucose (65-100) mg/dL POC Glucose (70-105) Calcium (8.4-10.2) mg/dL Magnesium 1.90 (1.7-2.3) mg/dL Total Bilirubin (0.1-1.2) mg/dL AST (5-40) units/L ALT (7-56) units/L Alkaline Phosphatase (35-129) units/L Total Creatine Kinase 174 H (30-135) units/L Total Protein (6.3-8.2) g/dL Albumin (3.9-5) g/dL Albumin/Globulin Ratio % - EKG Data -: EKG Interpreted by Me EKG shows normal: sinus rhythm - EKG Data 05/18/20 21:26 Sinus rhythm, 88 bpm, left axis deviation, left anterior fascicular block, low voltage, poor R wave progression, QTC within normal limits, the EKG is abnormal, the EKG is not a STEMI - Radiology Data Radiology results: pending, image reviewed interpreted by me: One-view portable x-ray of the chest, reviewed by myself, no acute disease or pathology. Critical care attestation.: If time is entered above; I have spent that time in minutes in the direct care of this critically ill patient, excluding procedure time. ED Disposition Clinical Impression: Suspected 2019 novel coronavirus infection, Hyperglycemia, History of diarrhea, Pyuria Headache Qualifiers: Headache type: unspecified Headache chronicity pattern: unspecified pattern Intractability: not intractable Qualified Code(s): R51 - Headache Disposition: DC-01 TO HOME OR SELFCARE Is pt being admited?: No Does the pt Need Aspirin: No Condition: Stable Instructions: COVID-19, Diabetic Hyperglycemia (ED) Additional Instructions: As we discussed, the patient most likely has novel coronavirus/COVID. the symptoms of COVID will typically persist 10 to 14 days. There is no cure at this time for COVID. Please make certain to self isolate and self quarantine, follow-up with an outpatient primary care doctor within the next 3 to 5 days, wash hands with soap and water frequently, thoroughly and often, patient may take the prescribed medications as needed and directed. Advance diet and drink plenty of fluids as tolerated. Avoid interactions with the very elderly, very young, and those with chronic medical conditions. Return to the emergency room right away with new pain, worsening pain, migration of pain, projectile vomiting, change in mental status, confusion, inability to tolerate liquid feeds, new, worsened or different symptoms not present on the initial emergency room evaluation. Please make certain to maintain an appropriate diabetic diet, patient may reference the [place] [employer] website for instructions on how to participate in appropriate diet. Please continue current outpatient medications. Cultures of the urine was sent today, and results will be available in the next 3 to 5 days. Please have your primary care doctor contact the medical records department to obtain culture results. Prescriptions: Nadine Root [Nadine] 250 mg PO QID PRN #30 capsule PRN Reason: Nausea Nitrofurantoin [place]/M-Cryst [Macrobid CAP] 100 mg PO Q12HR #14 capsule Ibuprofen [Motrin] 600 mg PO Q8H PRN #30 tablet PRN Reason: Pain Acetaminophen [Non-Aspirin Extra Strength] 500 mg PO Q6HR PRN #30 tablet PRN Reason: Pain , Severe (7-10) Metoclopramide [Reglan] 10 mg PO QID PRN #30 tablet PRN Reason: Nausea Referrals: MANJULA MONAHAN MD [Staff Physician] - 3-5 Days [facility] [Provider Group] - 3-5 Days Forms: Work/School Release Form(ED)
[2020-05-18] MEDS ORDERED: INSULIN REGULAR, HUMAN 100 UNITS/1 ML ONE ×2 (20:43→22:24)
[2020-05-18 22:29] LABS: Bilirubin,Urine NEG (Negative); Blood,Urine NEG (Negative); Color,Urine Straw (Yellow); Mucus,Urine FEW /HPF; Urobilinogen,Urine < 2.0 mg/dL (<2.0)
--- NOTE | 2020-05-18 22:59 | XRay Report ---
CHEST 1 VIEW INDICATION: n/v/ weak, suspect covid COMPARISON: 05/13/2019 FINDINGS: Support devices: None Heart: Normal and unchanged Lungs/Pleura: No acute pulmonary or pleural findings. IMPRESSION: 1. No acute disease and no interval change. Signer Name: Andres Silver MD Signed: 05/18/2020 10:54 PM Workstation Name: [id number]
[2020-05-18 23:52] VITALS: BP 145/85
== END 2020-05-18 23:50 | disposition home or self-care (01) ==
LOC: ED 18:36
DX: E11.65 Type 2 diabetes mellitus with hyperglycemia (principal); Z20.828 Contact with and (suspected) exposure to other viral communicable diseases; R82.81 Pyuria; R19.7 Diarrhea, unspecified; R51.9 Headache, unspecified; I10 Essential (primary) hypertension; Z87.891 Personal history of nicotine dependence; Z79.1 Long term (current) use of non-steroidal anti-inflammatories (NSAID); Z79.899 Other long term (current) drug therapy; Z88.0 Allergy status to penicillin
CPT/HCPCS: 36415; 71045; 80053; 81001; 82550; 82962; 83735; 85027; 87086; 93005; 96361; 96374; 96375; 96376; 99285; J1200; J1885; J2765; J7030; J1815

== ENCOUNTER 2021-04-13 17:14 | Emergency (ER) | payer MEDICAID ==
[2021-04-13 17:36] VITALS: BP 174/98
--- NOTE | 2021-04-13 17:52 | Emergency Department Report ---
ED General Adult HPI - General Chief complaint: Fever Stated complaint: FEVER/NO APPETITE Source: patient Mode of arrival: Ambulatory Limitations: No Limitations - History of Present Illness Initial comments: The patient was evaluated in the emergency department for symptoms described in the history of present illness. He/she was evaluated in the context of the global COVID-19 pandemic, which necessitated consideration that the patient might be at risk for infection with the virus that causes COVID-19. Institutional protocols and algorithms that pertain to the evaluation of patients at risk for COVID-19 are in a state of rapid change based on information released by regulatory bodies including the CDC and federal and state organizations. These policies and algorithms were followed during the patient's care in the emergency department. Please note that these policies, procedures and recommendations changed on a rapid basis. 51-year-old female presents to the emergency room for fever decreased appetite nausea vomiting body aches. Patient also complains of right lower quadrant pain that started today. Dates that she had a Covid test yesterday but would not know her results for 2 to 3 days. Patient states she last saw her primary care provider last week with a new doctor. Patient is unvaccinated. Has had a hysterectomy. Onset/Timin -: days(s), This morning (For lower abdominal pain on the right side) Location: abdomen (Lower abdominal) Severity scale (0 -10): 8 Quality: stabbing Improves with: none Worsens with: none Associated Symptoms: fever/chills, loss of appetite, nausea/vomiting Treatments Prior to Arrival: other (Tylenol 4 hours ago) - Related Data Previous Rx's Medication Instructions Recorded Last Taken Type Benzonatate [Tessalon Perles] 100 mg PO Q8HR PRN #20 capsule 05/13/19 Unknown Rx Fluticasone [Flonase] 1 spray NS QDAY #1 bottle 05/13/19 Unknown Rx Loratadine (Nf) [Claritin] 10 mg PO DAILY #20 tablet 05/13/19 Unknown Rx Naproxen [Naprosyn] 500 mg PO BID #20 tablet 05/13/19 Unknown Rx Ondansetron [Zofran Odt] 4 mg PO Q8HR PRN #20 tab.rapdis 05/13/19 Unknown Rx Acetaminophen [Non-Aspirin Extra 500 mg PO Q6HR PRN #30 tablet 10/03/20 Unknown Rx Strength] Nadine Root [Nadine] 250 mg PO QID PRN #30 capsule 05/18/20 Unknown Rx Ibuprofen [Motrin] 600 mg PO Q8H PRN #30 tablet 05/18/20 Unknown Rx Metoclopramide [Reglan] 10 mg PO QID PRN #30 tablet 05/18/20 Unknown Rx Nitrofurantoin [place]/M-Cryst 100 mg PO Q12HR #14 capsule 05/18/20 Unknown Rx [Macrobid CAP] Azithromycin [Zithromax Z-TERE] 0 mg PO DAILY #6 tab 04/13/21 Unknown Rx predniSONE [Deltasone] 40 mg PO QDAY 5 Days #10 tab 04/13/21 Unknown Rx Allergies Allergy/AdvReac Type Severity Reaction Status Date / Time Penicillins Allergy Swelling Verified 05/13/19 05:03 ED Review of Systems ROS: Stated complaint: FEVER/NO APPETITE Other details as noted in HPI Comment: All other systems reviewed and negative ED Past Medical Hx - Past Medical History Previous Medical History?: Yes Hx Hypertension: Yes Hx Diabetes: Yes - Surgical History Past Surgical History?: Yes Additional Surgical History: Neck surgery x 2 - Social History Smoking Status: Never Smoker Substance Use Type: None - Medications Home Medications: Home Medications Medication Instructions Recorded Confirmed Last Taken Type Benzonatate [Tessalon Perles] 100 mg PO Q8HR PRN #20 capsule 05/13/19 Unknown Rx Fluticasone [Flonase] 1 spray NS QDAY #1 bottle 05/13/19 Unknown Rx Loratadine (Nf) [Claritin] 10 mg PO DAILY #20 tablet 05/13/19 Unknown Rx Naproxen [Naprosyn] 500 mg PO BID #20 tablet 05/13/19 Unknown Rx Ondansetron [Zofran Odt] 4 mg PO Q8HR PRN #20 tab.rapdis 05/13/19 Unknown Rx Acetaminophen [Non-Aspirin Extra 500 mg PO Q6HR PRN #30 tablet 05/18/20 Unknown Rx Strength] Nadine Root [Nadine] 250 mg PO QID PRN #30 capsule 05/18/20 Unknown Rx Ibuprofen [Motrin] 600 mg PO Q8H PRN #30 tablet 05/18/20 Unknown Rx Metoclopramide [Reglan] 10 mg PO QID PRN #30 tablet 05/18/20 Unknown Rx Nitrofurantoin [place]/M-Cryst 100 mg PO Q12HR #14 capsule 05/18/20 Unknown Rx [Macrobid CAP] Azithromycin [Zithromax Z-TERE] 0 mg PO DAILY #6 tab 04/13/21 Unknown Rx predniSONE [Deltasone] 40 mg PO QDAY 5 Days #10 tab 04/13/21 Unknown Rx ED Physical Exam - General Limitations: No Limitations General appearance: alert, in no apparent distress - Head Head exam: Present: atraumatic, normocephalic - Eye Eye exam: Present: normal appearance - Neck Neck exam: Present: normal inspection, full ROM - Respiratory Respiratory exam: Present: normal lung sounds bilaterally. Absent: accessory muscle use - Cardiovascular Cardiovascular Exam: Present: tachycardia - GI/Abdominal GI/Abdominal exam: Present: soft, tenderness (Right lower quadrant suprapubic). Absent: distended - Extremities Exam Extremities exam: Present: normal inspection, full ROM - Back Exam Back exam: Present: normal inspection - Neurological Exam Neurological exam: Present: alert, oriented X3, normal gait - Psychiatric Psychiatric exam: Present: normal affect, normal mood - Skin Skin exam: Present: warm, dry, intact, normal color. Absent: rash ED Course Vital Signs 04/13/21 17:33 Temperature 99.2 F Pulse Rate 101 H Respiratory 18 Rate Blood Pressure 174/98 O2 Sat by Pulse 98 Oximetry ED Medical Decision Making - Lab Data Result diagrams: 04/13/21 20:33 04/13/21 20:33 - Radiology Data Radiology results: report reviewed [facility] [address] [place] [address] Cat Scan Report Signed Patient: KEITH HICKS MR#: [id number] : 1970 Acct:[id number] Age/Sex: 51 / F ADM Date: 04/13/21 Loc: ED Attending Dr: Ordering Physician: JOANIE AGUAYO Date of Service: 04/13/21 Procedure(s): CT abdomen wo con Accession Number(s): [id number] cc: JOANIE AGUAYO CT ABDOMEN AND PELVIS WITHOUT CONTRAST INDICATION / CLINICAL INFORMATION: RLQ abd pain. TECHNIQUE: Axial CT images were obtained through the abdomen and pelvis without IV contrast. All CT scans at this location are performed using CT dose reduction for ALARA by means of automated exposure control. COMPARISON: CT dated 10/29/19 FINDINGS: LOWER CHEST: Airspace disease in the left lower lobe likely representing focal pneumonia. LIVER: No significant abnormality. GALLBLADDER: Cholecystectomy. BILE DUCTS: No significant abnormality. PANCREAS: No significant abnormality. SPLEEN: No significant abnormality. ADRENALS: Small subcentimeter right adrenal nodule is stable. RIGHT KIDNEY / URETER: No significant abnormality. LEFT KIDNEY / URETER: No significant abnormality. STOMACH / SMALL BOWEL: No significant abnormality. COLON: No significant abnormality. APPENDIX: No significant abnormality. PERITONEUM: No free fluid. No free air. No fluid collection. LYMPH NODES: No significant adenopathy. AORTA / ARTERIES: Mild atherosclerotic calcification without acute abnormality. IVC / VEINS: No significant abnormality. URINARY BLADDER: No significant abnormality. REPRODUCTIVE ORGANS: Uterus is absent. No significant adnexal abnormality. ADDITIONAL FINDINGS: None. SKELETAL SYSTEM: New defect in the anterior right iliac bone which may represent a bone graft donor site. IMPRESSION: 1. Focal left lower lobe pneumonia. 2. No acute process in the abdomen or pelvis. Normal appendix. Signer Name: Lavell Larkin MD Signed: 04/13/2021 9:50 PM Workstation Name: [id number] Transcribed By: DT Dictated By: Rickey Larkin MD Electronically Authenticated By: Rickey Larkin MD Signed Date/Time: 04/13/212149 DD/ 40 TD/TT: Print Cancel - Medical Decision Making 51-year-old female presents to the emergency room for fever decreased appetite nausea vomiting body aches. Patient also complains of right lower quadrant pain that started today. Dates that she had a Covid test yesterday but would not know her results for 2 to 3 days. Patient states she last saw her primary care provider last week with a new doctor. Patient is unvaccinated. Has had a hysterectomy. Urinalysis has been ordered Critical Care Time: Yes (35) Critical care attestation.: If time is entered above; I have spent that time in minutes in the direct care of this critically ill patient, excluding procedure time. ED Disposition Clinical Impression: Suspected COVID-19 virus infection, Left lower lobe pneumonia Disposition: HOME / SELF CARE / HOMELESS Is pt being admited?: No Does the pt Need Aspirin: No Condition: Stable Instructions: Bacterial Pneumonia (ED), COVID-19: How to Protect Yourself and Others - CDC, COVID-19 Frequently Asked Questions Additional Instructions: Your symptoms appear most consistent with a nonspecific viral syndrome. However, given this current pandemic, COVID-19 is in the differential of possibilities. I do recommend outpatient Covid 19 testing. In the meantime, isolate/quarantine yourself and stay away from anyone who is elderly, immunocompromised or chronically ill. You can use ibuprofen every 6-8 hours and Tylenol every 4-8 hours, using the dosing on the back of the bottle, as needed for any fever or body aches. Return to the emergency department with any worsening of your symptoms, development of chest pain or shortness of breath, or with any acute distress. Complete antibiotics as prescribed. Complete prednisone as prescribed. Prescriptions: predniSONE [Deltasone] 40 mg PO QDAY 5 Days #10 tab Azithromycin [Zithromax Z-TERE] 0 mg PO DAILY #6 tab
[2021-04-13 19:51] LABS: Bacteria,Urine 1+ /HPF (Negative); Bilirubin,Urine NEG (Negative); Blood,Urine NEG (Negative); Color,Urine Amber (Yellow); Mucus,Urine 2+ /HPF; Urobilinogen,Urine < 2.0 mg/dL (<2.0)
[2021-04-13 19:52] LABS: Protein,Urine >500 mg/dL (Negative)
[2021-04-13 20:55] LABS: Basophils % (Auto) 0.2 % (0.0-1.8); Eosinophils % (Auto) 0.1 % (0.0-4.3); Hematocrit 42.6 % (30.3-42.9); Hemoglobin 14.1 gm/dl (10.1-14.3); Lymphocytes % (Auto) 30.8 % (13.4-35.0); Mean Corpuscular HGB Conc 33 % (30-34); Mean Corpuscular Volume 77 fl (79-97); Monocytes # (Auto) 0.2 K/mm3 (0.0-0.8); Monocytes % (Auto) 7.1 % (0.0-7.3); Platelet Count 228 K/mm3 (140-440); Red Blood Count 5.53 M/mm3 (3.65-5.03); Red Cell Distribution Width 14.4 % (13.2-15.2)
[2021-04-13 21:03] LABS: Alanine Aminotransferase 24 units/L (7-56); Albumin 3.2 g/dL (3.9-5); BUN/Creatinine Ratio 12; Blood Urea Nitrogen 11 mg/dL (7-17); Calcium 9.6 mg/dL (8.4-10.2); Hemolysis Index 6
--- NOTE | 2021-04-13 21:55 | Cat Scan Report ---
CT ABDOMEN AND PELVIS WITHOUT CONTRAST INDICATION / CLINICAL INFORMATION: RLQ abd pain. TECHNIQUE: Axial CT images were obtained through the abdomen and pelvis without IV contrast. All CT scans at this location are performed using CT dose reduction for ALARA by means of automated exposure control. COMPARISON: CT dated 10/29/19 FINDINGS: LOWER CHEST: Airspace disease in the left lower lobe likely representing focal pneumonia. LIVER: No significant abnormality. GALLBLADDER: Cholecystectomy. BILE DUCTS: No significant abnormality. PANCREAS: No significant abnormality. SPLEEN: No significant abnormality. ADRENALS: Small subcentimeter right adrenal nodule is stable. RIGHT KIDNEY / URETER: No significant abnormality. LEFT KIDNEY / URETER: No significant abnormality. STOMACH / SMALL BOWEL: No significant abnormality. COLON: No significant abnormality. APPENDIX: No significant abnormality. PERITONEUM: No free fluid. No free air. No fluid collection. LYMPH NODES: No significant adenopathy. AORTA / ARTERIES: Mild atherosclerotic calcification without acute abnormality. IVC / VEINS: No significant abnormality. URINARY BLADDER: No significant abnormality. REPRODUCTIVE ORGANS: Uterus is absent. No significant adnexal abnormality. ADDITIONAL FINDINGS: None. SKELETAL SYSTEM: New defect in the anterior right iliac bone which may represent a bone graft donor s ite. IMPRESSION: 1. Focal left lower lobe pneumonia. 2. No acute process in the abdomen or pelvis. Normal appendix. Signer Name: Lavell Larkin MD Signed: 04/13/2021 9:50 PM Workstation Name: [id number]
== END 2021-04-13 23:25 | disposition home or self-care (01) ==
LOC: ED 17:14
DX: J18.1 Lobar pneumonia, unspecified organism (principal); Z20.822 Contact with and (suspected) exposure to COVID-19; I10 Essential (primary) hypertension; E11.8 Type 2 diabetes mellitus with unspecified complications; Z98.890 Other specified postprocedural states; Z88.0 Allergy status to penicillin
CPT/HCPCS: 36415; 74150; 80053; 81001; 85025; 99284